=== PATIENT | female | born 1975 | race African-American/Black ===

== ENCOUNTER 2018-10-08 08:33 | Emergency (ER) | payer SELFPAY ==
[~2018-10-08] VITALS: Ht 157.5 cm; Wt 91.0 kg
[2018-10-08] MEDS ORDERED: IBUPROFEN 800MG TABLET PO ONE (11:00)
[2018-10-08 11:27] VITALS: BP 112/78
== END 2018-10-08 11:28 | disposition home or self-care (01) ==
LOC: ER 08:33
DX: L02.411 Cutaneous abscess of right axilla (principal); F17.200 Nicotine dependence, unspecified, uncomplicated; Z90.89 Acquired absence of other organs; Z90.49 Acquired absence of other specified parts of digestive tract; Z88.0 Allergy status to penicillin
CPT/HCPCS: 99283